=== PATIENT | male | born 1985 ===

== ENCOUNTER 2017-03-06 02:10 | Emergency (ER) | payer MEDICAID ==
[2017-03-06 02:22] VITALS: RESP 20
[2017-03-06] MEDS ORDERED: Sodium Chloride 0.9% 1,000 ML IV ONE (02:23)
[2017-03-06] MEDS ORDERED: Morphine 4 MG/ML VIAL ONE (02:31)
[2017-03-06] MEDS ORDERED: Silver Sulfadiazine 1% Cream (20 gm) TOP STA (02:32)
[2017-03-06] MEDS ORDERED: Silver Sulfadiazine 1% Cream (20 gm) ONE ×2 (02:45→03:18)
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
[2017-03-06 04:34] VITALS: BP 138/78; PULSE 88; TEMP 98.2
[2017-03-10 18:36] VITALS: O2SAT 100
== END 2017-03-06 04:32 | disposition home or self-care (01) ==
LOC: C.ER 02:10
DX: T24.211A Burn of second degree of right thigh, initial encounter (principal); T25.222A Burn of second degree of left foot, initial encounter; Y93.G3 Activity, cooking and baking; X12.XXXA Contact with other hot fluids, initial encounter; Y92.89 Other specified places as the place of occurrence of the external cause
CPT/HCPCS: 16020; 96374; 99284; J2270; J7040